=== PATIENT | male | born 1955 | race Caucasian/White ===

== ENCOUNTER 2019-06-16 11:34 | Inpatient (IN) | payer MEDICARE ==
[~2019-06-16] VITALS: Ht 165.1 cm; Wt 66.5 kg
[2019-06-16 12:11] LABS: BASOPHILS ABSOLUTE AUTO 0.06 K/mm3 (0.00-0.23); BASOPHILS PERCENT AUTO 1 % (0-2); EOSINOPHILS ABSOLUTE AUTO 0.55 K/mm3 (0.00-0.68); EOSINOPHILS PERCENT AUTO 6 % (0-6); Hematocrit 30.2 % (37.0-53.0); IMMATURE GRAN ABSOLUTE AUTO 0.07 K/mm3 (0.00-0.10); IMMATURE GRAN PERCENT AUTO 1 % (0-1); LYMPHOCYTES PERCENT AUTO 22 % (21-46); MONOCYTES ABSOLUTE AUTO 0.96 K/mm3 (0.16-1.47); MONOCYTES PERCENT AUTO 11 % (4-13); Mean Corpuscular HGB 28.8 pg (26.0-34.0); Mean Corpuscular HGB Conc 29.8 g/dL (31.5-36.5); Mean Corpuscular Volume 97 fL (80-100); Mean Platelet Volume 10.4 fL (9.1-12.4); NEUTROPHILS ABSOLUTE AUTO 5.11 K/mm3 (1.96-9.15); NEUTROPHILS PERCENT AUTO 59 % (41-73); Platelet Count 537 K/mm3 (150-400); RDW Standard Deviation 52.8 fL (35.1-46.3); Red Blood Cell Count 3.13 M/mm3 (4.30-5.90); White Blood Cell Count 8.65 K/mm3 (4.00-11.30)
[2019-06-16 12:31] LABS: Albumin, Blood 2.7 g/dL (3.4-5.0); Albumin/Globulin Ratio 0.7 (0.8-1.8); Bilirubin, Total 0.1 mg/dL (0.1-1.0); Bun/Creatinine Ratio 18.8 (12.0-20.0); Calcium, Blood 8.3 mg/dL (8.5-10.1); Creatinine, Blood 2.29 mg/dL (0.60-1.20); Globulin, Blood 3.8 g/dL (2.2-4.0); Potassium, Blood 4.7 mmol/L (3.5-5.5); Total Protein, Blood 6.5 g/dL (6.4-8.2)
[2019-06-16 12:51] LABS: Source, Urine Clean Catch
[2019-06-16] MEDS ORDERED: MELA3 PO (12:57)
[2019-06-16] MEDS ORDERED: ALBU90OI INH (12:57)
[2019-06-16] MEDS ORDERED: MUCUS ER600 MG PO (12:58)
[2019-06-16] MEDS ORDERED: Nicoderm Cq1 EAC1 TOP (12:59)
[2019-06-16 13:04] LABS: Bilirubin, Urine Neg (Neg); Blood, Urine Neg (Neg); Glucose Qualitative, Urine Neg (Neg); Ketones, Urine Neg (Neg); Leukocyte Esterase, Urine Neg (Neg); Nitrite, Urine Neg (Neg); Protein, Urine 1+ (Neg); Urobilinogen, Urine NORM (Normal)
[2019-06-16 13:27] LABS: Appearance, Urine Clear (Clear); Color, Urine Pale Yellow (P-Yellow)
--- NOTE | 2019-06-16 18:19 | NUR ---
PT ADMIT/SHIFT SUMMARY PT TRANSPORTED FROM ER BY [employer] OPERATIONS AGENT IN W/C. PT HAS DENIED N&V, ABD PAIN OR DIARRHEA THIS SHIFT. PT IS IN DEPENDENT TO RR WILL CALL FOR ASSISTANCE. PT TOLORATED DINNER WELL AND IS WATCHING TV. PT HAS CALL LIGHT WITH IN REACHA DN WILL COUNTINUE TO MONITOR AND REPORT TO ONCOMING SHIFT,
[2019-06-16 21:06] LABS: Source, Urine Clean Catch
[2019-06-16 21:09] LABS: Bilirubin, Urine Neg (Neg); Blood, Urine Neg (Neg); Glucose Qualitative, Urine Neg (Neg); Ketones, Urine Neg (Neg); Leukocyte Esterase, Urine Neg (Neg); Nitrite, Urine Neg (Neg); Protein, Urine Neg (Neg); Specific Gravity, Urine 1.005 (1.003-1.022); Urobilinogen, Urine NORM (Normal); pH, Urine 6.5 (5.0-8.0)
[2019-06-16 21:11] LABS: Appearance, Urine Clear (Clear); Color, Urine Yellow (P-Yellow)
--- NOTE | 2019-06-17 04:32 | NUR ---
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 PT AAOX4 AND PLEASANT. DENIES PAIN, N/V, SOB. PT RESTING THROUGH MAJORITY OF SHIFT. CONTINUES ON IV FLUIDS AT 125 ML/HR. STANDBY ASSIST TO BATHROOM DUE TO IV POLE. VSS, WILL CONTINUE TO MONITOR.
[2019-06-17 04:34] LABS: BASOPHILS ABSOLUTE AUTO 0.03 K/mm3 (0.00-0.23); BASOPHILS PERCENT AUTO 0 % (0-2); EOSINOPHILS ABSOLUTE AUTO 0.67 K/mm3 (0.00-0.68); EOSINOPHILS PERCENT AUTO 8 % (0-6); Hematocrit 27.6 % (37.0-53.0); Hemoglobin 8.4 g/dL (13.5-17.5); IMMATURE GRAN ABSOLUTE AUTO 0.05 K/mm3 (0.00-0.10); IMMATURE GRAN PERCENT AUTO 1 % (0-1); LYMPHOCYTES ABSOLUTE AUTO 2.03 K/mm3 (0.84-5.20); LYMPHOCYTES PERCENT AUTO 23 % (21-46); MONOCYTES ABSOLUTE AUTO 0.88 K/mm3 (0.16-1.47); MONOCYTES PERCENT AUTO 10 % (4-13); Mean Corpuscular HGB Conc 30.4 g/dL (31.5-36.5); Mean Corpuscular Volume 95 fL (80-100); Mean Platelet Volume 10.5 fL (9.1-12.4); NEUTROPHILS ABSOLUTE AUTO 5.13 K/mm3 (1.96-9.15); NEUTROPHILS PERCENT AUTO 58 % (41-73); Platelet Count 466 K/mm3 (150-400); RDW Coefficient Variation 14.7 % (11.7-14.2); RDW Standard Deviation 51.8 fL (35.1-46.3); White Blood Cell Count 8.79 K/mm3 (4.00-11.30)
[2019-06-17 05:04] LABS: Albumin, Blood 2.5 g/dL (3.4-5.0); Albumin/Globulin Ratio 0.7 (0.8-1.8); Bilirubin, Total 0.3 mg/dL (0.1-1.0); Bun/Creatinine Ratio 21.9 (12.0-20.0); Calcium, Blood 8.1 mg/dL (8.5-10.1); Creatinine, Blood 2.1 mg/dL (0.60-1.20); Globulin, Blood 3.4 g/dL (2.2-4.0); Potassium, Blood 5.2 mmol/L (3.5-5.5); Total Protein, Blood 5.9 g/dL (6.4-8.2)
--- NOTE | 2019-06-17 17:06 | NUR ---
SHIFT SUMMARY PT STABLE, WITH MINOR CONFUSSION AND EPISODE OF INCONTINENT THIS SHIFT. PT NEEDED IV RESTARTED BECAUSE OF LEAKING AND TOLORATED IT WELL. PT RAJINDER PAIN DURING THIS SHIFT. PT HAS TOLRATED MEALS WELL. PT AMBULATED WITH STAND BY ASSIST. PT HAS CALL LIGHT WITH IN REACH FOR SAFETY AND WILL COUNTINUE TO MONITOR AND REPORT TO ON NOC RN.
--- NOTE | 2019-06-18 04:49 | NUR ---
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 PT AAOX3 WITH SOME INTERMITTENT FORGETFULNESS. PT DENIES PAIN. BREATHING TREATMENTS PRN THROUGH NIGHT PER RT. PT COUGHING MINIMAL AMOUNTS OF SPUTUM. PT CONTINUES TO BE INCONTINENT ALTHOUGH PT STATES HE KNOWS WHEN HE HAS TO URINATE. PT STATED "I USUALLY JUST GO". GIVEN URINAL AND PT HAS DONE BETTER WITH THAT. PT HAS SLEPT MOST OF THE NIGHT WITH NO COMPLAINTS. WILL CONTINUE TO MONITOR.
[2019-06-18 04:56] LABS: BASOPHILS ABSOLUTE AUTO 0.03 K/mm3 (0.00-0.23); BASOPHILS PERCENT AUTO 0 % (0-2); EOSINOPHILS PERCENT AUTO 8 % (0-6); Hematocrit 28.8 % (37.0-53.0); Hemoglobin 8.9 g/dL (13.5-17.5); IMMATURE GRAN ABSOLUTE AUTO 0.04 K/mm3 (0.00-0.10); IMMATURE GRAN PERCENT AUTO 1 % (0-1); LYMPHOCYTES ABSOLUTE AUTO 1.27 K/mm3 (0.84-5.20); LYMPHOCYTES PERCENT AUTO 15 % (21-46); MONOCYTES ABSOLUTE AUTO 0.79 K/mm3 (0.16-1.47); MONOCYTES PERCENT AUTO 9 % (4-13); Mean Corpuscular HGB 28.7 pg (26.0-34.0); Mean Corpuscular HGB Conc 30.9 g/dL (31.5-36.5); Mean Corpuscular Volume 93 fL (80-100); Mean Platelet Volume 10.7 fL (9.1-12.4); NEUTROPHILS PERCENT AUTO 67 % (41-73); Platelet Count 486 K/mm3 (150-400); RDW Coefficient Variation 14.8 % (11.7-14.2); White Blood Cell Count 8.63 K/mm3 (4.00-11.30)
[2019-06-18 05:11] LABS: Albumin, Blood 2.6 g/dL (3.4-5.0); Anion Gap 6 mmol/L (6-16); Blood Urea Nitrogen 49 mg/dL (8-24); Bun/Creatinine Ratio 24.6 (12.0-20.0); CO2, Blood 23 mmol/L (21-32); Calcium, Blood 8.3 mg/dL (8.5-10.1); Chloride, Blood 110 mmol/L (98-108); Creatinine, Blood 1.99 mg/dL (0.60-1.20); Glomerular Filtration Rate 36 (60-); Glucose, Blood 94 mg/dL (70-99); Phosphorus, Blood 4.1 mg/dL (2.5-4.9); Sodium, Blood 139 mmol/L (136-145)
--- NOTE | 2019-06-18 11:03 | NUR ---
NOTIFIED DR CUELLAR @ 1000 OF PATIENT BEING HYPERTENSIVE THIS AM. RECEIEVED ORDERS FOR IV HYDRALAZINE PRN. WILL RECHECK THE PATIENTS BP WHEN HE WAKES UP.
--- NOTE | 2019-06-18 14:10 | NUR ---
PATIENT'S IVF ADJUSTED TO 75ml/HR PER MD ORDERS; USED CURRENT BAG HANGING.
--- NOTE | 2019-06-18 16:33 | NUR ---
SHIFT SUMMARY THE PATIENT HAS BEEN PLEASANT AND COOPERATIVE WITH STAFF. DENIES PAIN AND DISCOMFORT. BP HAS BEEN SLIGHTLY ELEVATED, BOTH SYSTOLLICALLY AND DIASTOLLICALLY. THIS AFTERNOON DBP WAS 104; IV HYDRALAZINE ADMINISTERED PER ORDERS. EFFECTIVENESS PENDING. PATIENT OTHER VITALS STABLE. PATIENT CONTINUES ON IV ABX WITHOUT S/SX OF ADVERSE REACTIONS NOTED OR REPORTED. CALLS FOR STAFF ASSIST APPROPRIATELY. WILL CONTINUE TO MONITOR AND PROVIDE CARE NEEDED.
--- NOTE | 2019-06-18 21:48 | NUR ---
PT IS PLEASANT AND COOPERATIVE WITH CARE. DENIES NAUSEA OR DISCOMFORT AT THIS TIME. VSS. LUNG SOUNDS DIMINISHED. AAOX3. SIPING SOUP AND APPEARS COMFORTABLE.
--- NOTE | 2019-06-19 04:11 | NUR ---
NOC SHIFT SUMMARY PT HAS BEEN PLEASANT AND COOPERATIVE WITH CARE THIS NIGHT. VSS. HAS LARGELY SLEPT THIS NIGHT. DID REQUIRE BED CHANGE FOR URINARY INCONTINENCE. NO ACUTE CHANGES NOTED THUS FAR. PT APPEARS TO BE SLEEPING WITH UNLABORED AND EVEN RESPIRATIONS. WILL CONTINUE TO MONITOR.
[2019-06-19 04:38] LABS: Hematocrit 28.7 % (37.0-53.0); Mean Corpuscular HGB 28.8 pg (26.0-34.0); Mean Corpuscular HGB Conc 31.4 g/dL (31.5-36.5); Mean Corpuscular Volume 92 fL (80-100); Mean Platelet Volume 10.3 fL (9.1-12.4); Platelet Count 484 K/mm3 (150-400); RDW Coefficient Variation 15.2 % (11.7-14.2); RDW Standard Deviation 50.4 fL (35.1-46.3); Red Blood Cell Count 3.12 M/mm3 (4.30-5.90); White Blood Cell Count 8.94 K/mm3 (4.00-11.30)
[2019-06-19 04:56] LABS: Bun/Creatinine Ratio 23.9 (12.0-20.0); Calcium, Blood 8.2 mg/dL (8.5-10.1); Creatinine, Blood 2.05 mg/dL (0.60-1.20); Potassium, Blood 4.9 mmol/L (3.5-5.5)
--- NOTE | 2019-06-19 08:36 | NUR ---
REMOVED NICOTINE PATCH FROM L SHOULDER PLACED 06/18
[2019-06-19] MEDS ORDERED: ACET325 PO (11:34)
[2019-06-19] MEDS ORDERED: ASCO500 PO (11:35)
[2019-06-19] MEDS ORDERED: AZIT500 PO (11:36)
[2019-06-19] MEDS ORDERED: BENZ100A PO (11:36)
[2019-06-19] MEDS ORDERED: FERSU300 PO (11:37)
[2019-06-19] MEDS ORDERED: FAMO20 PO (11:37)
[2019-06-19] MEDS ORDERED: CEFP200 PO (11:37)
[2019-06-19] MEDS ORDERED: Florastor250 MG PO (11:38)
[2019-06-19] MEDS ORDERED: ONDA4ODT MM (11:38)
--- NOTE | 2019-06-19 12:18 | NUR ---
DISCHARGE INSTRUCTIONS REVIEWED WITH PATIENT, A PAPER COPY GIVEN REFERENCE. [facility] IV's X2 DISCONTINUED AND PRESSURE DRESSINGS APPLIED. ALL QUESTIONS ANSWERED. [facility] TO [facility].
--- NOTE | 2019-06-19 12:37 | NUR ---
[facility]IENT [facility] AT 1230 VIA [facility]. I ASSISTED PATIENT OUT TO [facility]IA [facility].
== END 2019-06-19 12:40 | disposition home or self-care (01) | DRG 682 ==
LOC: ER 11:34 → MEDS 11:35 → ENPENDDIS 06-19 10:00 → MEDS 06-19 12:40
PROVIDERS: Emergency Medicine; ADMIT Family Medicine
DX: N17.9 Acute kidney failure, unspecified (principal); J18.9 Pneumonia, unspecified organism; A09 Infectious gastroenteritis and colitis, unspecified; D64.9 Anemia, unspecified; Z59.0 Homelessness; F17.210 Nicotine dependence, cigarettes, uncomplicated; J44.9 Chronic obstructive pulmonary disease, unspecified; G89.29 Other chronic pain; M54.5 Low back pain; N18.3 Chronic kidney disease, stage 3 (moderate); E78.5 Hyperlipidemia, unspecified
CPT/HCPCS: 36415; 71045; 71046; 74176; 80048; 80053; 80069; 81003; 83690; 83735; 85025; 85027; 94640; 94760; 96360; 96361; 96375; 96376; 97116; 97161; 99284-25; G0378; J0360; J0456; J0696; J1650; J7030; J7050

== ENCOUNTER 2019-06-21 11:12 | Emergency (ER) | payer MEDICARE ==
[~2019-06-21] VITALS: Ht 165.1 cm; Wt 72.6 kg
[~2019-06-21 11:12] MED LIST: ACET325 PO; ALBU90OI INH; ASCO500 PO; AZIT500 PO; BENZ100A PO; CEFP200 PO; FAMO20 PO; FERSU300 PO; Florastor250 MG PO; MELA3 PO; MUCUS ER600 MG PO; Nicoderm Cq1 EAC1 TOP; ONDA4ODT MM
[2019-06-21 12:17] LABS: BASOPHILS ABSOLUTE AUTO 0.06 K/mm3 (0.00-0.23); BASOPHILS PERCENT AUTO 1 % (0-2); EOSINOPHILS ABSOLUTE AUTO 0.32 K/mm3 (0.00-0.68); EOSINOPHILS PERCENT AUTO 5 % (0-6); Hematocrit 34.4 % (37.0-53.0); Hemoglobin 10.6 g/dL (13.5-17.5); IMMATURE GRAN ABSOLUTE AUTO 0.02 K/mm3 (0.00-0.10); IMMATURE GRAN PERCENT AUTO 0 % (0-1); LYMPHOCYTES ABSOLUTE AUTO 0.85 K/mm3 (0.84-5.20); LYMPHOCYTES PERCENT AUTO 13 % (21-46); MONOCYTES PERCENT AUTO 9 % (4-13); Mean Corpuscular HGB 28.7 pg (26.0-34.0); Mean Corpuscular HGB Conc 30.8 g/dL (31.5-36.5); Mean Corpuscular Volume 93 fL (80-100); Mean Platelet Volume 9.9 fL (9.1-12.4); NEUTROPHILS ABSOLUTE AUTO 4.51 K/mm3 (1.96-9.15); NEUTROPHILS PERCENT AUTO 71 % (41-73); Platelet Count 461 K/mm3 (150-400); RDW Coefficient Variation 14.8 % (11.7-14.2); RDW Standard Deviation 50.4 fL (35.1-46.3); Red Blood Cell Count 3.69 M/mm3 (4.30-5.90); White Blood Cell Count 6.36 K/mm3 (4.00-11.30)
[2019-06-21 12:36] LABS: Albumin, Blood 3.2 g/dL (3.4-5.0); Albumin/Globulin Ratio 0.8 (0.8-1.8); Bilirubin, Total 0.3 mg/dL (0.1-1.0); Calcium, Blood 8.8 mg/dL (8.5-10.1); Creatinine, Blood 2.24 mg/dL (0.60-1.20); Globulin, Blood 4.1 g/dL (2.2-4.0); Potassium, Blood 5.3 mmol/L (3.5-5.5); Total Protein, Blood 7.3 g/dL (6.4-8.2)
[2019-06-21] MEDS ORDERED: TRAZ50 PO (12:51)
== END 2019-06-21 15:00 | disposition home or self-care (01) ==
LOC: ER 11:12
PROVIDERS: Emergency Medicine
DX: R10.9 Unspecified abdominal pain (principal); Z79.899 Other long term (current) drug therapy; J44.9 Chronic obstructive pulmonary disease, unspecified; J45.909 Unspecified asthma, uncomplicated; F17.210 Nicotine dependence, cigarettes, uncomplicated
CPT/HCPCS: 80053; 83690; 85025; 93005; 93010; 99284-25